=== PATIENT | male | born 1975 | race Caucasian/White ===

== ENCOUNTER 2018-05-07 15:25 | Observation (INO) ==
[2018-05-07] MEDS ORDERED: Aspirin 81 MG TAB.CHEW PO ONE (15:35)
--- NOTE | 2018-05-07 15:43 | Emergency Department Note ---
Disposition Clinical Impression: Elevated blood pressure reading, Tobacco abuse Chest pain Qualifiers: Chest pain type: unspecified Qualified Code(s): R07.9 - Chest pain, unspecified Disposition: Admitted As Inpatient Condition: Fair Referrals: Allyssa Wang MD [Primary Care Provider] - Forms: ED Satisfaction Letter Time of Disposition: 17:23 Chest Pain HPI - General Chief Complaint: ED Chest Pain Stated Complaint: CP Time Seen by Provider: 05/07/18 15:29 Source: patient Mode of arrival: ambulatory Limitations: no limitations Vital Signs Reviewed: Yes Nursing Notes Reviewed: Yes - History of Present Illness HPI Narrative: 42-year-old borderline diabetic male tobacco user presents for evaluation of chest pain. Patient states symptom onset was approximately an hour prior to ED arrival. States the pain was nonexertional. Patient does have history of acid reflux but states his pain was different than his acid reflux pain. Pain is localized across the anterior part of his chest with radiation to his left shoulder and neck. States the pain lasted a few minutes and then spontaneously resolved. Patient states he felt diaphoretic but noted it was hot out. Denies any nausea vomiting. Patient did have a pleuritic component to the chest pain at the time. Patient denies any fevers or cough. Denies any other symptoms. Patient denies history of heart attacks in the past. Denies any recent travel or active cancers. Denies history of PEs. Patient states that he is in a high stress job. Patient currently denies any chest pain. Severity scale (1-10): 0 - Related Data Home Medications Medication Instructions Recorded Confirmed No Known Home Drugs 05/07/18 05/07/18 Allergies Allergy/AdvReac Type Severity Reaction Status Date / Time morphine Allergy Hives Verified 05/07/18 15:27 All systems ED: reviewed and negative except as stated. Constitutional: Denies: fever Cardiovascular: Reports: chest pain Respiratory: Denies: cough, dyspnea Gastrointestinal: Denies: abdominal pain, nausea, vomiting Chest Pain PMH - Past Medical History Medical history: Reports: no medical history Surgical history: Reports: non-contributory - Social History Smoking Status: Current every day smoker Alcohol use: Reports: none Drug use: Reports: none Physical Exam - General Limitations: no limitations General appearance: alert, in no apparent distress - Head Head exam: atraumatic, normocephalic, normal inspection - Eye Eye exam: Present: normal appearance, PERRL, EOMI - ENT ENT exam: normal exam, normal oropharynx, mucous membranes moist - Neck Neck exam: Present: normal inspection, full ROM, trachea midline - Chest Chest inspection: Present: normal inspection, symmetric chest wall rise - Respiratory Respiratory exam: Present: normal lung sounds bilaterally. Absent: respiratory distress - Cardiovascular Cardiovascular exam: Present: regular rate, normal rhythm. Absent: systolic murmur - Abdominal Exam Abdominal exam: Present: soft, Non-Tender - Extremities Exam Extremities exam: Present: normal inspection. Absent: pedal edema - Expanded Lower Extremity Exam Neurovascular/Tendon exam: Present: normal capillary refill - Neurological Exam Neurological exam: Present: alert, oriented X3 - Skin Skin exam: Present: warm, dry, intact, normal color Course Course Narrative: Patient seen and examined. Patient states his pain is currently resolved. Patient's receiving screening cardiopulmonary evaluation with EKG, chest x-ray troponin. Patient's also deemed low risk for a PE and a d-dimer was ordered. Disposition pending. - Reevaluation(s) Reevaluation #1: Patient seen and examined. Denies any complaints. Awaiting labs. Time: 16:23 Reevaluation #2: Patient seen and examined. Patient's resting comfortably. Patient denies any needs. At this time the patient is low to moderate risk ACS. Cannot completely rule out in the ED. Given the patient's concerning history as well as risk factors would opt for observation and inpatient admission. Patient will count with that plan of care. Time: 17:21 Vital Signs Temperature 97.9 F 05/07/18 15:25 Pulse Rate 102 05/07/18 15:25 Respiratory Rate 18 05/07/18 15:25 Blood Pressure 173/106 05/07/18 15:25 O2 Sat by Pulse Oximetry 95 05/07/18 15:25 Temperature 97.9 F 05/07/18 15:33 Pulse Rate 85 05/07/18 17:15 Respiratory Rate 20 05/07/18 17:15 Blood Pressure 147/104 05/07/18 17:15 O2 Sat by Pulse Oximetry 96 05/07/18 17:15 Oxygen Delivery Oxygen Delivery Room Air Chest Pain - MDM Narrative Medical decision making narrative: Patient presents with complaints of chest pain. Patient did have a moderate to highly suspicious ACS history. Patient does have risk factors for ACS however does not have a history of known CAD. Patient also has history of reflux over the patient Rissa stated that this pain was different. Patient was deemed low risk with a negative d-dimer and less likely a pulmonary embolism. Given the patient's concerning history as well as negative ED evaluation the patient is appropriate for inpatient admission with serial troponins and likely provocative testing. Patient felt comfort with that plan of care. Patient was also noted to be hypertensive and that information was given to the patient instructed to follow-up with his primary care doctor regarding his elevated blood pressure. - Lab Data Lab results reviewed: Yes I reviewed the patient's lab results. Result diagrams: 05/07/18 15:46 05/07/18 15:46 Lab Results 05/07/18 05/07/18 05/07/18 Range/Units 15:36 15:39 15:46 WBC 10.6 (4.3-11.1) K/mcL RBC 5.38 (4.19-5.50) M/mcL Hgb 16.2 (12.9-16.9) g/dL Hct 47.1 (37.5-50.1) % MCV 87.5 (83.0-100.0) fL MCH 30.1 (28.0-33.3) pg MCHC 34.4 (31.6-35.5) g/dL RDW 14.0 (11.5-14.5) % Plt Count 253 (140-400) K/mcL MPV 10.5 (9.4-12.4) fL Immature Gran % 0.4 (0-4) % Seg Neutrophils % 67.3 % Lymphocytes % 22.2 % Monocytes % 7.4 % Eosinophils % 1.9 % Basophils % 0.8 % Neutrophils # 7.1 (1.6-8.9) K/mcL Lymphocytes # 2.4 (0.6-4.6) K/mcL Monocytes # 0.8 (0.0-1.3) K/mcL Eosinophils # 0.2 (0.0-0.6) K/mcL Basophils # 0.1 (0.0-0.2) K/mcL PT 9.9 (9.4-12.1) Seconds INR 0.9 APTT 34.1 (26.0-36.0) Seconds D-Dimer 388 (0-500) ng/mLFEU Sodium (136-145) mEq/L Potassium (3.5-5.1) mEq/L Chloride (98-107) mEq/L Carbon Dioxide (23-29) mEq/L BUN (6-20) mg/dL Creatinine (0.70-1.30) mg/dL Est GFR ( Amer) (> 60) Est GFR (Non-Af Amer) (> 60) BUN/Creatinine Ratio (6-26) Glucose (70-105) mg/dL Calculated Osmolality (280-300) Calcium (8.6-10.3) mg/dL Total Bilirubin (0.3-1.0) mg/dL Direct Bilirubin (0.0-0.2) mg/dL Indirect Bilirubin (0.0-1.2) mg/dL AST (13-39) Units/L ALT (7-52) Units/L Alkaline Phosphatase (34-104) Units/L Troponin I (< 0.04) ng/mL B-Natriuretic Peptide 31 (Less than 100) pg/mL Serum Total Protein (6.4-8.9) g/dL Albumin (3.5-5.7) g/dL Globulin (2.4-3.5) g/dL Albumin/Globulin Ratio (1.1-2.2) Lipase (11-82) Units/L 05/07/18 Range/Units 15:46 WBC (4.3-11.1) K/mcL RBC (4.19-5.50) M/mcL Hgb (12.9-16.9) g/dL Hct (37.5-50.1) % MCV (83.0-100.0) fL MCH (28.0-33.3) pg MCHC (31.6-35.5) g/dL RDW (11.5-14.5) % Plt Count (140-400) K/mcL MPV (9.4-12.4) fL Immature Gran % (0-4) % Seg Neutrophils % % Lymphocytes % % Monocytes % % Eosinophils % % Basophils % % Neutrophils # (1.6-8.9) K/mcL Lymphocytes # (0.6-4.6) K/mcL Monocytes # (0.0-1.3) K/mcL Eosinophils # (0.0-0.6) K/mcL Basophils # (0.0-0.2) K/mcL PT (9.4-12.1) Seconds INR APTT (26.0-36.0) Seconds D-Dimer (0-500) ng/mLFEU Sodium 138 (136-145) mEq/L Potassium 4.0 (3.5-5.1) mEq/L Chloride 107 (98-107) mEq/L Carbon Dioxide 23 (23-29) mEq/L BUN 17 (6-20) mg/dL Creatinine 1.03 (0.70-1.30) mg/dL Est GFR ( Amer) > 60 (> 60) Est GFR (Non-Af Amer) > 60 (> 60) BUN/Creatinine Ratio 17 (6-26) Glucose 108 H (70-105) mg/dL Calculated Osmolality 288 (280-300) Calcium 9.3 (8.6-10.3) mg/dL Total Bilirubin 0.9 (0.3-1.0) mg/dL Direct Bilirubin 0.2 (0.0-0.2) mg/dL Indirect Bilirubin 0.7 (0.0-1.2) mg/dL AST 21 (13-39) Units/L ALT 25 (7-52) Units/L Alkaline Phosphatase 76 (34-104) Units/L Troponin I < 0.03 (< 0.04) ng/mL B-Natriuretic Peptide (Less than 100) pg/mL Serum Total Protein 7.2 (6.4-8.9) g/dL Albumin 4.5 (3.5-5.7) g/dL Globulin 2.7 (2.4-3.5) g/dL Albumin/Globulin Ratio 1.7 (1.1-2.2) Lipase 32 (11-82) Units/L - Radiology Data Radiology results reviewed: Yes I reviewed the patient's radiology results. Chest X-Ray 05/07/18 15:36 IMPRESSION: No acute process. D/ / Aries Lopez MD / Aries Lopez MD Interpreting Provider: Aries Lopez MD - EKG Data EKG attestation: Yes I reviewed and interpreted this EKG. EKG shows normal: sinus rhythm Rate: tachycardia Rhythm: NSR [place]/QRS: normal T wave inversions noted in: III, v1 Interpretation: no acute changes, nonspecific ST-T wave changes Heart Score - Score History: Highly Suspicious EKG: Normal Age: Less than 45 Risk Factors: 1-2 risk factors Troponin: Less than normal limit HEART Score Total: 3 S.Catie - Sariah.Catie Situation: Demographics Background: Presenting Complaint Assessment: Vital Signs, Course and respsone to treatment Recommendation: Barrier(s) to disposition, Recommendation based on pending studies, treatments, or consults SDeacon Report Given to: Dr. Pat Briscoe Repor Time: 17:36
[2018-05-07 15:57] LABS: Basophils # 0.1 K/mcL (0.0-0.2); Basophils % 0.8 %; Eosinophils # 0.2 K/mcL (0.0-0.6); Eosinophils % 1.9 %; Hematocrit 47.1 % (37.5-50.1); Hemoglobin 16.2 g/dL (12.9-16.9); Immature Granulocytes % 0.4 % (0-4); Lymphocytes # 2.4 K/mcL (0.6-4.6); Lymphocytes % 22.2 %; Mean Corpuscular HGB Conc 34.4 g/dL (31.6-35.5); Mean Corpuscular Hemoglobin 30.1 pg (28.0-33.3); Mean Corpuscular Volume 87.5 fL (83.0-100.0); Mean Platelet Volume 10.5 fL (9.4-12.4); Monocytes # 0.8 K/mcL (0.0-1.3); Monocytes % 7.4 %; Neutrophils # 7.1 K/mcL (1.6-8.9); Platelet Count 253 K/mcL (140-400); Red Blood Count 5.38 M/mcL (4.19-5.50); Segmented Neutrophils % 67.3 %
[2018-05-07 16:16] LABS: BUN/Creatinine Ratio 17 (6-26); Blood Urea Nitrogen 17 mg/dL (6-20); Calcium 9.3 mg/dL (8.6-10.3); Carbon Dioxide 23 mEq/L (23-29); Chloride 107 mEq/L (98-107); Glucose 108 mg/dL (70-105); Osmolality,Calculated 288 (280-300); Sodium 138 mEq/L (136-145); Troponin I < 0.03 ng/mL (< 0.04); eGFR For African Americans > 60 (> 60); eGFR For Non-African Americans > 60 (> 60)
[2018-05-07 16:35] LABS: Activated Partial Thrombo Time 34.1 Seconds (26.0-36.0); Prothrombin Time 9.9 Seconds (9.4-12.1)
[2018-05-07 16:36] LABS: Alanine Aminotransferase 25 Units/L (7-52); Albumin 4.5 g/dL (3.5-5.7); Albumin/Globulin Ratio 1.7 (1.1-2.2); Alkaline Phosphatase 76 Units/L (34-104); Aspartate Amino Transferase 21 Units/L (13-39); Bilirubin,Direct 0.2 mg/dL (0.0-0.2); Bilirubin,Indirect 0.7 mg/dL (0.0-1.2); Bilirubin,Total 0.9 mg/dL (0.3-1.0); Globulin 2.7 g/dL (2.4-3.5); Lipase 32 Units/L (11-82); Total Protein 7.2 g/dL (6.4-8.9)
[2018-05-07 16:39] LABS: INR 0.9
--- NOTE | 2018-05-07 17:44 | Emergency Department Note ---
Disposition Clinical Impression: Elevated blood pressure reading, Tobacco abuse Chest pain Qualifiers: Chest pain type: unspecified Qualified Code(s): R07.9 - Chest pain, unspecified Disposition: Admitted As Inpatient Condition: Fair Referrals: Allyssa Wang MD [Primary Care Provider] - Forms: ED Satisfaction Letter General Adult HPI - General Chief complaint: ED Chest Pain Stated complaint: CP Time Seen by Provider: 05/07/18 15:29 Source: patient Mode of arrival: ambulatory Limitations: no limitations - History of Present Illness Pain Scale: 0 - Related Data Home Medications Medication Instructions Recorded Confirmed No Known Home Drugs 05/07/18 05/07/18 Allergies Allergy/AdvReac Type Severity Reaction Status Date / Time morphine Allergy Hives Verified 05/07/18 15:27 Constitutional: Denies: fever Cardiovascular: Reports: chest pain Respiratory: Denies: cough, dyspnea Gastrointestinal: Denies: abdominal pain, nausea, vomiting Past Medical History - Past Medical History Medical history: Reports: no medical history Surgical history: Reports: non-contributory Psychiatric history: Reports: no psych history - Social History Smoking Status: Current every day smoker Smokeless Tobacco Status: No Alcohol use: Reports: none Drug use: Reports: none Physical Exam - General Limitations: no limitations General appearance: alert, in no apparent distress Course Vital Signs Temperature 97.9 F 05/07/18 15:25 Pulse Rate 102 05/07/18 15:25 Respiratory Rate 18 05/07/18 15:25 Blood Pressure 173/106 05/07/18 15:25 O2 Sat by Pulse Oximetry 95 05/07/18 15:25 Temperature 97.9 F 05/07/18 15:33 Pulse Rate 82 05/07/18 17:30 Respiratory Rate 14 05/07/18 17:30 Blood Pressure 142/110 05/07/18 17:30 O2 Sat by Pulse Oximetry 93 05/07/18 17:30 Oxygen Delivery Oxygen Delivery Room Air Medical Decision Making - Lab Data Result diagrams: 05/07/18 15:46 05/07/18 15:46 Lab Results 05/07/18 05/07/18 05/07/18 Range/Units 15:36 15:39 15:46 WBC 10.6 (4.3-11.1) K/mcL RBC 5.38 (4.19-5.50) M/mcL Hgb 16.2 (12.9-16.9) g/dL Hct 47.1 (37.5-50.1) % MCV 87.5 (83.0-100.0) fL MCH 30.1 (28.0-33.3) pg MCHC 34.4 (31.6-35.5) g/dL RDW 14.0 (11.5-14.5) % Plt Count 253 (140-400) K/mcL MPV 10.5 (9.4-12.4) fL Immature Gran % 0.4 (0-4) % Seg Neutrophils % 67.3 % Lymphocytes % 22.2 % Monocytes % 7.4 % Eosinophils % 1.9 % Basophils % 0.8 % Neutrophils # 7.1 (1.6-8.9) K/mcL Lymphocytes # 2.4 (0.6-4.6) K/mcL Monocytes # 0.8 (0.0-1.3) K/mcL Eosinophils # 0.2 (0.0-0.6) K/mcL Basophils # 0.1 (0.0-0.2) K/mcL PT 9.9 (9.4-12.1) Seconds INR 0.9 APTT 34.1 (26.0-36.0) Seconds D-Dimer 388 (0-500) ng/mLFEU Sodium (136-145) mEq/L Potassium (3.5-5.1) mEq/L Chloride (98-107) mEq/L Carbon Dioxide (23-29) mEq/L BUN (6-20) mg/dL Creatinine (0.70-1.30) mg/dL Est GFR ( Amer) (> 60) Est GFR (Non-Af Amer) (> 60) BUN/Creatinine Ratio (6-26) Glucose (70-105) mg/dL Calculated Osmolality (280-300) Calcium (8.6-10.3) mg/dL Total Bilirubin (0.3-1.0) mg/dL Direct Bilirubin (0.0-0.2) mg/dL Indirect Bilirubin (0.0-1.2) mg/dL AST (13-39) Units/L ALT (7-52) Units/L Alkaline Phosphatase (34-104) Units/L Troponin I (< 0.04) ng/mL B-Natriuretic Peptide 31 (Less than 100) pg/mL Serum Total Protein (6.4-8.9) g/dL Albumin (3.5-5.7) g/dL Globulin (2.4-3.5) g/dL Albumin/Globulin Ratio (1.1-2.2) Lipase (11-82) Units/L 05/07/18 Range/Units 15:46 WBC (4.3-11.1) K/mcL RBC (4.19-5.50) M/mcL Hgb (12.9-16.9) g/dL Hct (37.5-50.1) % MCV (83.0-100.0) fL MCH (28.0-33.3) pg MCHC (31.6-35.5) g/dL RDW (11.5-14.5) % Plt Count (140-400) K/mcL MPV (9.4-12.4) fL Immature Gran % (0-4) % Seg Neutrophils % % Lymphocytes % % Monocytes % % Eosinophils % % Basophils % % Neutrophils # (1.6-8.9) K/mcL Lymphocytes # (0.6-4.6) K/mcL Monocytes # (0.0-1.3) K/mcL Eosinophils # (0.0-0.6) K/mcL Basophils # (0.0-0.2) K/mcL PT (9.4-12.1) Seconds INR APTT (26.0-36.0) Seconds D-Dimer (0-500) ng/mLFEU Sodium 138 (136-145) mEq/L Potassium 4.0 (3.5-5.1) mEq/L Chloride 107 (98-107) mEq/L Carbon Dioxide 23 (23-29) mEq/L BUN 17 (6-20) mg/dL Creatinine 1.03 (0.70-1.30) mg/dL Est GFR ( Amer) > 60 (> 60) Est GFR (Non-Af Amer) > 60 (> 60) BUN/Creatinine Ratio 17 (6-26) Glucose 108 H (70-105) mg/dL Calculated Osmolality 288 (280-300) Calcium 9.3 (8.6-10.3) mg/dL Total Bilirubin 0.9 (0.3-1.0) mg/dL Direct Bilirubin 0.2 (0.0-0.2) mg/dL Indirect Bilirubin 0.7 (0.0-1.2) mg/dL AST 21 (13-39) Units/L ALT 25 (7-52) Units/L Alkaline Phosphatase 76 (34-104) Units/L Troponin I < 0.03 (< 0.04) ng/mL B-Natriuretic Peptide (Less than 100) pg/mL Serum Total Protein 7.2 (6.4-8.9) g/dL Albumin 4.5 (3.5-5.7) g/dL Globulin 2.7 (2.4-3.5) g/dL Albumin/Globulin Ratio 1.7 (1.1-2.2) Lipase 32 (11-82) Units/L Attestation Statement - Attestation Attestation: I examined this patient and my medical decision-making was reviewed with the Resident Physician, Dr. Hoang. I agree with the documented findings, disposition and treatment plan as described except to the extent set forth below. Patient is a 42-year-old white male with a history of recently elevated blood pressure, smoker, borderline diabetic who presents to the emergency department with a one-hour history of left-sided chest discomfort and upper abdominal pain. Patient does have a history of reflux disease but states this feels very different than that. He denies any migration of the pain or radiation, denies shortness of breath, diaphoresis, nausea or vomiting. Patient with elevated blood pressure and tachycardic at time of arrival. Patient's also been traveling a lot with increased stress on the respirator treatment in the past few weeks. Patient denies any lower extremity edema or swelling or pain. No lightheadedness or syncope. I agree with patient's physical exam findings as documented. Patient is pain- free on initial assessment and tachycardic and hypertensive. Patient's EKG shows sinus tachycardia without acute ischemia. Patient's chest x-ray is within normal limits. She is lab evaluation including troponin and BNP are within normal limits. Patient has remained pain-free while in the ED. Due to his risk factors and heart score greater than 3 we will admit the patient for further evaluation of chest pain. For admission.
[2018-05-07] MEDS ORDERED: Naloxone 0.4 MG/ML INJ IVP PRN (21:19)
[2018-05-07] MEDS: *HR* Heparin 5,000 UNIT/ML VIAL SQ SCH (21:51)
[2018-05-08 05:36] LABS: Hematocrit 46.9 % (37.5-50.1); Hemoglobin 15.7 g/dL (12.9-16.9); Mean Corpuscular HGB Conc 33.5 g/dL (31.6-35.5); Mean Corpuscular Hemoglobin 29.9 pg (28.0-33.3); Mean Corpuscular Volume 89.3 fL (83.0-100.0); Mean Platelet Volume 10.8 fL (9.4-12.4); Platelet Count 254 K/mcL (140-400); Red Blood Count 5.25 M/mcL (4.19-5.50); Red Cell Distribution Width 14.2 % (11.5-14.5)
[2018-05-08] MEDS: *HR* Heparin 5,000 UNIT/ML VIAL SQ SCH (05:41)
--- NOTE | 2018-05-08 05:42 | Internal Med History&Physical ---
Date of Encounter: 05/07/18 Time of Encounter: 20:00 Internal Medicine - H&P: HPI Admitted From: Home Plans for Post Hospital Care: Home History of present illness: Mr. Mann is a 42 year old male Patient presented to the emergency room for chest pain that lasted about 10 minutes radiated to his throat and shoulder that occurred initially while he was at work. 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 He is also outside in the heat quite a bit and has to work very fast. He never had pain like this before, however he does have a known history of GERD and possibly an ulcer in his stomach for which he takes dexilant. He has been meaning to get scheduled for an upper GI/colonoscopy but has yet to do this. The pain that he normally gets with his acid reflux is different than this pain that he experienced today, prompting him to come to the emergency room. At this time his chest pain has resolved, and he has not had any further episodes. Past Med Surg Social Fam HX - Past Medical History Medical history: GERD Psychiatric history: no psych history - Past Surgical History Surgical History: non-contributory Additional surgical history: knee surgery - Social History Smoking Status: Current every day smoker Smokeless Tobacco Status: No Alcohol use: none Drug use: none - Family History Father Hx Family Cardiac Disorders: Yes Internal Medicine - H&P: Meds No Known Home Drugs 05/07/18 [History] 3 Allergy/AdvReac Type Severity Reaction Status Date / Time morphine Allergy Hives Verified 05/07/18 15:27 All Systems PM: A 10-system review of systems was performed and is negative for pertinent findings except as documented above in the HPI. - Constitutional Vitals: Temp Pulse Resp BP Pulse Ox 97.8 F 79 14 149/73 96 05/08/18 03:02 05/08/18 03:02 05/08/18 03:02 05/08/18 03:02 05/08/18 03:02 General appearance: Present: A&O X 3, pleasant, no acute distress - Head Head exam: Present: atraumatic, normocephalic - Eye Eye exam: Present: EOMI, normal appearance - Neck Neck exam general surgery: Present: full ROM. Absent: tenderness - Respiratory Respiratory exam: Present: CTAB. Absent: chest wall tenderness, rales, rhonchi , stridor - Cardiovascular Cardiovascular exam: Present: RRR. Absent: diastolic murmur, JVD, systolic murmur - GI/Abdominal GI/Abdominal exam: Present: normal bowel sounds, soft. Absent: guarding - Extremities Exam Extremities exam: Present: full ROM, warm. Absent: tenderness - Neurological Exam Neurological exam: Present: CN II-XII intact, oriented X3, no focal deficits. Absent: motor sensory deficit - Skin Skin exam: Present: dry, normal color, warm Internal Med - H&P Results - Labs CBC & Chem 7: 05/07/18 15:46 05/07/18 15:46 Labs: Cardiac Enzymes 05/07/18 Range/Units 22:00 Troponin I < 0.03 (< 0.04) ng/mL - Assessment and plan (1) Chest pain Current Visit: Yes Status: Acute Assessment and plan: Patient seen for chest pain, has a known history of reflux. Emergency room EKG performed and not indicative of obvious cardiac issue. Troponins have been negative 2 thus far. Upon speaking with him, his chest pain seemed to be more related to his reflux and possibly exacerbated by anxiety. Patient may benefit from stress test outpatient. He will be admitted for chest pain observation and rule out. PPI given for reflux Troponins continue to trend follow-up results when available. Consider outpatient upper GI scope as well as colonoscopy. Qualifiers: Chest pain type: unspecified Qualified Code(s): R07.9 - Chest pain, unspecified (2) Elevated blood pressure reading Current Visit: Yes Status: Acute Assessment and plan: Initially elevated in the emergency room, has now improved. Patient states that he does not normally see a doctor, and therefore is not on any medications for his blood pressure. Patient may benefit from starting blood pressure medication at time of discharge. Monitor overnight Improved after leaving the emergency room. (3) Tobacco abuse Current Visit: Yes Status: Acute Assessment and plan: Patient is a current smoker. [employer] tobacco cessation. (4) Anxiety Current Visit: Yes Status: Acute Assessment and plan: Patient states that he gets anxious and stressed out due to his job, he does not take anything for anxiety outpatient. His anxiety improved after leaving the emergency room. Monitor, consider starting anti-anxiety medication at time of discharge. - Time Spent With Patient Total time spent is greater than 50% in coordination of care (as documented) at patient's floor/unit and/or counseling patient: Greater than 35 minutes
[2018-05-08 05:57] LABS: BUN/Creatinine Ratio 17 (6-26); Blood Urea Nitrogen 15 mg/dL (6-20); Carbon Dioxide 22 mEq/L (23-29); Chloride 108 mEq/L (98-107); Chol/HDL Ratio 5.4 (0-4.9); Cholesterol 212 mg/dL (< 200); Glucose 94 mg/dL (70-105); HDL Cholesterol 39 mg/dL (40-59); LDL Cholesterol,Calculated 130 mg/dL (0-99); Osmolality,Calculated 289 (280-300); Sodium 139 mEq/L (136-145); Triglycerides 216 mg/dL (< 150); Troponin I < 0.03 ng/mL (< 0.04); eGFR For African Americans > 60 (> 60); eGFR For Non-African Americans > 60 (> 60)
--- NOTE | 2018-05-08 06:41 | Electrocardiograph Report ---
[address] [place], [place] [address] Test Date: 2018-05-07 Pat Name: Marcio Mann Department: 103 Room: 3B Gender: M Manager Human Capital: PAIGE : 1975 Requested By: Ej Hoang Order Number: [id number] Reading MD: Feliciano Juan Measurements Intervals [place] Rate: 100 P: 33 IL: 169 QRS: -3 QRSD: 95 T: 13 QT: 334 QTc: 391 Interpretive Statements SINUS TACHYCARDIA Electronically Signed On 05-08-2018 6:39:45 EDT by Feliciano Juan
[2018-05-08 07:18] VITALS: BP 136/85
--- NOTE | 2018-05-08 14:41 | Discharge Summary ---
- NOTES TO OUTPATIENT PROVIDER Notes to Outpatient Provider: Patient will need an outpatient cardiac stress. Schedule follow up appointment with Dr Bunn for EGD. Monitor lipid profile- may need statin Orders not resulted at time of discharge: Pending orders 05/08/18 08:56 EKG [ECG 12 lead ECG] [ECG] Routine Date of Encounter: 05/08/18 Time of Encounter: 14:38 - Discharge Diagnosis (1) Chest pain Priority: Primary Status: Acute Qualifiers: Chest pain type: unspecified Qualified Code(s): R07.9 - Chest pain, unspecified (2) Elevated blood pressure reading Priority: Secondary Status: Acute (3) Tobacco abuse Priority: Secondary Status: Acute Hospital course: Mr. Mann is a 42 year old male past medical history of GERD and current smoker. Presented to the emergency room after experiencing approximately 10 minutes of midsternal chest pain that radiated to his throat and shoulder while he was at work. 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 He has been very anxious He has a history of GERD and possibly an ulcer in his stomach he takes dexilent, he is due for a upper GI/colonoscopy however he has not been able to have this completed. He felt the pain he was experiencing was different than his previous acid reflux which prompted him to come to the emergency room. He did have an elevated blood pressure on presentation however this resolved Initial EKG with no ST-T wave abnormalities. Troponins 3 were negative he was given a PPI which did improve his symptoms's chest x-ray was within normal limits he has been chest pain-free throughout the night. A.m. EKG with no changes. On assessment he has no chest pain however he is experiencing tenderness in his epigastric area upon palpation. I discussed with patient follow-up with primary care and outpatient cardiac stress test. We also discussed elevated lipid profile patient states he was on a statin however he stopped it due to he decreased his lipids with diet. Encouraged low-fat diet, lifestyle changes and to monitor lipid profile he may need need to start a statin. I encouraged patient to stop smoking. He also discussed outpatient EGD requesting to see Dr. Bunn, previously he did see Dr. Soares in [place]. We will set up an outpatient request to Dr. Bunn for EGD. Advised patient to continue with PPI Currently patient is pain-free hemodynamically stable and is ready for discharge. - Time Spent with Patient Total time spent providing and/or coordinating discharge services: - Discharge Medications Allergies/Adverse Reactions: 3 Allergy/AdvReac Type Severity Reaction Status Date / Time morphine Allergy Hives Verified 05/07/18 15:27 Date of admission: 05/07/18 17:46 Primary care physician: Cristy Hummel Discharging clinician: Sandrita Melton Anticipated date of discharge: 05/08/18 - Constitutional Vitals: Temp Pulse Resp BP Pulse Ox 98.1 F 74 16 136/85 95 05/08/18 07:14 05/08/18 07:14 05/08/18 07:14 05/08/18 07:14 05/08/18 07:14 General appearance: Present: A&O X 3, pleasant, no acute distress - Head Head exam: Present: atraumatic, normocephalic - Eye Eye exam: Present: PERRL, conjuntiva pink, sclera anicteric Pupils: Present: PERRL - Neck Neck exam general surgery: Present: supple, trachea midline. Absent: lymphadenopathy - Respiratory Respiratory exam: Present: CTAB. Absent: accessory muscle use, rales, rhonchi, wheezes - Cardiovascular Cardiovascular exam: Present: RRR, +S1, +S2. Absent: diastolic murmur, gallop, rubs, systolic murmur - GI/Abdominal GI/Abdominal exam: Present: normal bowel sounds, soft, tenderness, no peritoneal signs. Absent: distended - Extremities Exam Extremities exam: Present: warm, radial pulses palpable and symmetrical. Absent : calf tenderness, cyanotic, pedal edema - Neurological Exam Neurological exam: Present: CN II-XII intact, oriented X3, no focal deficits. Absent: pronater drift, facial droop, speech deficit - Skin Skin exam: Present: dry, intact - Patient Status Disposition: Home, Self-Care Condition: Fair Functional capacity at discharge: independent ambulation Overall status at discharge: patient is back to baseline - Discharge Instructions Instructions: Chest Pain (DC) Follow Up With: Jose Bunn MD [Partnered Physician] - (An appointment has been requested. Dr. Bunn's office will call with appointment date and time.) Allyssa Wang MD [Primary Care Provider] - - Diet and Activity Activity: resume usual activities as tolerated Diet: low fat, low cholesterol
--- NOTE | 2018-05-09 12:27 | Electrocardiograph Report ---
[place] [id number] Test Date: 2018-05-08 Pat Name: Marcio Mann Department: 113 Room: [facility] Gender: M Legal Services Manager: : 1975 Requested By: Sandrita Melton Order Number: [id number] Reading MD: Feliciano Juan Measurements Intervals [place] Rate: 76 P: 46 MO: 175 QRS: -5 QRSD: 96 T: 21 QT: 388 QTc: 418 Interpretive Statements SINUS RHYTHM Electronically Signed On 05-09-2018 12:26:03 EDT by Feliciano Juan
== END 2018-05-08 15:35 | disposition home or self-care (01) ==
LOC: EMEROO 15:25 → 3BNU 15:25
PROVIDERS: ADMIT Family Medicine; ATTEND Family Medicine